=== PATIENT | male | born 1985 | race Caucasian/White ===

== ENCOUNTER 2018-08-11 18:09 | Emergency (ER) | payer OTHER ==
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
[2018-08-11 18:31] VITALS: BP 134/79; PULSE 80; TEMP 98.2; BMI 31.6
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
[2018-08-11] MEDS ORDERED: ACETAMINOPHEN 500 MG TABLET (FP) PO ONE (19:01)
[2018-08-11] MEDS ORDERED: ACETAMINOPHEN 500 MG TABLET (FP) ONE (19:27)
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
== END 2018-08-11 20:42 | disposition home or self-care (01) ==
LOC: FER 18:09
DX: S46.912A Strain of unspecified muscle, fascia and tendon at shoulder and upper arm level, left arm, initial encounter (principal); S09.90XA Unspecified injury of head, initial encounter; S39.012A Strain of muscle, fascia and tendon of lower back, initial encounter; V43.52XA Car driver injured in collision with other type car in traffic accident, initial encounter; Y93.89 Activity, other specified; Y92.410 Unspecified street and highway as the place of occurrence of the external cause
CPT/HCPCS: 70450-TC; 72100-TC-FY; 72125-TC; 99281-25